=== PATIENT | male | born 1935 | race Caucasian/White ===

== ENCOUNTER 2016-03-22 07:37 | Observation (INO) | payer MEDICARE ==
[2016-03-22] MEDS ORDERED: Pantoprazole IV* 40 MG IV ONE (07:55)
[2016-03-22] MEDS ORDERED: Pantoprazole IV* 80 MG in NS 0.9% 250 ML* 250 ML IVPB SCH (08:00)
[2016-03-22 08:38] LABS: Hematocrit 48 % (42-52); Hemoglobin 16.2 g/dl (14.0-18.0); Mean Corpuscular HGB Conc 34 g/dl (31-36); Mean Corpuscular Hemoglobin 30 pg (27-31); Mean Corpuscular Volume 88 fL (80-94); Mean Platelet Volume 11 um3 (7.4-10.4); Red Blood Count 5.48 10^6/ul (4.0-5.4); Red Cell Distribution Width 14 % (10.5-15); White Blood Count 11.6 10^3/ul (3.5-10.8)
[2016-03-22 08:41] LABS: Comments Flag Yes
[2016-03-22 08:42] LABS: Add Diff/Slide Review? Slide Review Added
[2016-03-22 08:56] LABS: Albumin 3.8 g/dL (3.2-5.2); BUN/Creatinine Ratio 18.4 (8-20); Calcium 9.1 mg/dL (8.6-10.3); EGFR African American 89.4 (>60); EGFR Non-African American 69.5 (>60); Globulin 2.8 g/dL (2-4); Potassium 4.4 mmol/L (3.5-5.0); Total Bilirubin 1.2 mg/dL (0.2-1.0); Total Protein 6.6 g/dL (6.4-8.9)
[2016-03-22] MEDS ORDERED: Iohexol 300* (CONTRAST) 10 ML SDV IV ONE (09:31)
--- NOTE | 2016-03-22 11:16 | RAD ---
INDICATION: Bloody diarrhea, abdominal pain. COMPARISON: Comparison is made with a prior CT angiogram of the chest and abdomen from June 20, 2006. TECHNIQUE: A CT scan of the abdomen and pelvis was performed with intravenous and oral contrast following intravenous injection of 120 ml of Omnipaque 300 nonionic contrast. Contiguous axial sections were obtained from the lung bases through the symphysis pubis. Images were reconstructed in the coronal and sagittal planes. FINDINGS: The lung bases appear clear without pleural effusion. The liver and spleen are normal in size. There is a small fluid density lesion present in the posterior aspect of the left hepatic lobe measuring 1.5 cm in size which is unchanged significantly from the prior exam most consistent with a cyst. No calcified gallstones are seen. The pancreas appears to be within normal limits. The kidneys and adrenal glands are normal in size. No hydronephrosis is seen. There is a 2.5 cm cyst present in the midportion of the left kidney. The abdominal aorta is mildly ectatic and slightly tortuous. No aneurysm is present. There is moderate calcific plaque present. The infrarenal portion of the inferior vena cava is located on the left side and drains into the left renal vein. No significant enlarged retroperitoneal lymph nodes are seen. The stomach, small and large bowel appear nondistended. There is a moderate size hiatal hernia present. There is moderate grade circumferential thickening of the wall of the descending colon and proximal sigmoid colon with stranding in the adjacent fat most consistent with colitis. There is a trace amount of free intraperitoneal fluid in the left paracolic gutter. No free intraperitoneal air is seen. There is a moderate diverticulosis present in the sigmoid colon without evidence for diverticulitis. There are mild to moderate chronic compression fractures of the T12 and L1 vertebral bodies. No other focal osseous normality is seen. The patient is status post total right hip replacement surgery. IMPRESSION: 1. THICKENING OF THE WALL OF THE DESCENDING AND PROXIMAL SIGMOID COLON MOST CONSISTENT WITH COLITIS. 2. MODERATE SIZE HIATAL HERNIA. 3. CHRONIC COMPRESSION FRACTURES OF THE T12 AND L1 VERTEBRAL BODIES.
[2016-03-22] MEDS ORDERED: Ciprofloxacin 400MG IVPREMIX(* 400 MG/200 ML BAG IVPB ONE (11:54)
[2016-03-22] MEDS ORDERED: metroNIDAZOLE IV 250 MG/50ML* 50 ML IVPB ONE (11:54)
[2016-03-22] MEDS ORDERED: Acetaminophen TAB* 325 MG PO PRN (12:27)
[2016-03-22] MEDS ORDERED: Ondansetron INJ* 2 MG/ML VIAL IV PRN (12:27)
[2016-03-22 13:38] LABS: Urine Bacteria Absent (Absent); Urine Bilirubin Negative (Negative); Urine Glucose Negative (Negative); Urine Nitrite Negative (Negative)
--- NOTE | 2016-03-22 16:08 | HP ---
AMENDED REPORT NOW INCLUDES DATE OF ADMISSION ADMISSION HISTORY AND PHYSICAL: DATE OF ADMISSION: 03/22/16 PRIMARY CARE PROVIDER: Dr. Gamino. AMMUNITION ASSEMBLY II LABORER: Dr. Rowe. HEALTHCARE PROXY: Bill Marques, his son-in-law. CODE STATUS: DNR, discussed with the patient, will reflect it in [facility] filled out today. CHIEF COMPLAINT: Bright red blood per rectum. HISTORY OF PRESENT ILLNESS: This is an 81-year-old man, past medical history of atrial fibrillation, on Coumadin, who noticed yesterday at 8'o clock in the morning, crampy lower abdominal pain. He had a bowel movement at that time and he noted bright red blood. Throughout the day, he had four additional stools mixed with blood. He went to bed and overnight had no bowel movements; however , woke up this morning, had another bowel movement that was predominantly blood and less stool and was encouraged by his son-in-law to proceed to the emergency room. He notes that the abdominal pain comes and goes, feels crampy, and lasts for less than 1 minute. He describes it as the feeling one has "stomach gets upset" and improves with movement of stool and blood. He has had no associated nausea or vomiting, was able to tolerate food yesterday, although had decreased intake. There is no change in the character or quantity of abdominal pain with intake of food. He notes no lightheadedness, chest pain, shortness of breath, or palpitations. In emergency room, he had another bowel movement, which was noted to be bloody and none since then. He notes no sick contacts, no recent travel, but does note approximately 2 to 3 weeks ago, he had upper respiratory tract symptoms associated with laryngitis that has since improved. His last colonoscopy was in June by Dr. Pettit noted five small colonic polyps, one SSA and four TAs. Followup colonoscopy was pending. PCP recommendation based on his age. PAST MEDICAL HISTORY: 1. Chronic atrial fibrillation, on Coumadin, did not take yesterday evening's dose because of bleeding. 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 2. History of hypertension. 3. Permanent pacemaker. 4. History of rheumatic fever. 5. Hyperlipidemia. 6. Thoracic aneurysm. 7. Obstructive sleep apnea, on home CPAP. 8. Right hip replacement. MEDICATIONS: Reviewed with the patient: 1. Toprol 25 mg twice daily. 2. Digoxin 500 mcg daily. 3. Coumadin 5 mg Sunday, Sunday, Sunday, and Sunday and 2.5 mg Sunday, Sunday, and . ALLERGIES: No known drug allergies. FAMILY HISTORY: Reviewed and noncontributory to this admission. 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 No history of alcohol, tobacco, or illicit's. Lives alone. Ambulates unassisted. REVIEW OF SYSTEMS: As per HPI. Otherwise, all other systems negative. PHYSICAL EXAMINATION GENERAL: Lying flat in bed, interactive, pleasant, in no apparent distress, younger than stated age. VITAL SIGNS: When seen by this author, 116/81, heart rate 85, respiratory rate 14, 96% on room air, T-max in the emergency room 97.9. HEENT: Oropharynx is clear. Has moist mucous membranes. Sclerae are anicteric. No conjunctival pallor. NECK: Nonelevated JVD. No cervical or supraclavicular lymphadenopathy. CV: Heart rate is irregularly irregular. No murmurs, rubs, or gallops. LUNGS: Clear to auscultation. ABDOMEN: Soft, nondistended. Positive bowel sounds. Minimal tenderness in the left lower quadrant. No rebound or guarding. EXTREMITIES: Warm and well-perfused. He has very trace lower extremity edema. Less than 2-second cap refill. Good skin turgor. NEURO: He is alert and oriented x3. Cranial nerves are II through XII are intact. PSYCH: No appreciable anxiety, agitation, or depression. DIAGNOSTIC STUDIES/LAB DATA: Data reviewed: CT abdomen and pelvis notable for thickening of the wall of descending and proximal sigmoid colon, most consistent with colitis. Moderate-sized hiatal hernia. Chronic compression fractures of T12 and L1 vertebral bodies. EKG looks like high-grade AV block with adequate ventricular capture. T-wave inversions in II and aVF. T-wave inversions in V4 through V6. Notable labs: BUN 19, creatinine 1.03. AST 25, ALT 24, total bilirubin 1.2. INR is 1.6. White blood cell count 11.6, which is 77% neutrophils; hemoglobin 16.2; hematocrit 48; platelets are 125, which is his baseline. ASSESSMENT AND PLAN: This is an 81-year-old man with past medical history of chronic atrial fibrillation, on Coumadin, presenting with crampy abdominal pain associated with bright red blood per rectum. 1. Lower gastrointestinal bleed: Potentially viral gastroenteritis with lower gastrointestinal bleed in the setting of Coumadin use. Intermittent crampiness and recent upper respiratory tract infection, which supports this diagnosis. He does not appear to have lost significant amount of blood. His hemoglobin is 16.2 on presentation after 24 hours of bleeding. His hemoglobin is consistent with past hemoglobins. This does not seem to indicate hemoconcentration. We will trend hemoglobin and hematocrit every 6 hours. Ask GI for assistance. Place the patient on clear liquid diet. Stop Protonix drip and check orthostatics. 2. Atrial fibrillation: Holding Coumadin in the setting of active gastrointestinal bleed. Continue metoprolol and digoxin. 3. Obstructive sleep apnea. Continue with CPAP, hospital equipment. 4. DVT prophylaxis. SCDs. 5. Code status. DNR. Discussed with the patient. CC: Dr. Gamino; Dr. Rowe* [id number]/CPS #: [id number] [facility]
[2016-03-22 16:19] LABS: Hematocrit 46 % (42-52); Hemoglobin 15.6 g/dl (14.0-18.0)
[2016-03-22] MEDS ORDERED: Digoxin TAB* 0.25 MG PO SCH (17:00)
[2016-03-22] MEDS: Metoprolol Succinate XL TAB* 25 MG PO SCH (20:04)
[2016-03-22 20:22] LABS: Hematocrit 45 % (42-52); Hemoglobin 14.7 g/dl (14.0-18.0)
[2016-03-23 05:16] LABS: Hematocrit 46 % (42-52); Hemoglobin 15.5 g/dl (14.0-18.0); Mean Corpuscular HGB Conc 34 g/dl (31-36); Mean Corpuscular Hemoglobin 30 pg (27-31); Mean Corpuscular Volume 89 fL (80-94); Mean Platelet Volume 11 um3 (7.4-10.4); Red Blood Count 5.16 10^6/ul (4.0-5.4); Red Cell Distribution Width 14 % (10.5-15); White Blood Count 11.5 10^3/ul (3.5-10.8)
[2016-03-23 05:24] LABS: BUN/Creatinine Ratio 15.2 (8-20); Calcium 8.8 mg/dL (8.6-10.3); EGFR African American 87.4 (>60); Potassium 4.6 mmol/L (3.5-5.0)
[2016-03-23 07:12] VITALS: BP 111/80
[2016-03-23] MEDS: Metoprolol Succinate XL TAB* 25 MG PO SCH (07:46)
--- NOTE | 2016-03-23 15:57 | CONS ---
CONSULTATION REPORT: DATE OF CONSULT: 03/23/16 REASON FOR CONSULT: Abdominal pain, rectal bleeding, colitis on CT scan. NARRATIVE: Mr. Pascal is an 81-year-old gentleman with a history of atrial fibrillation, on Coumadin, who presents with crampy abdominal pain followed by rectal bleeding. He states that he has been doing well lately, but on the day prior to admission started to have mild lower abdominal pain. That followed episodes of hematochezia, where stools were noted to be bright red blood. He presented to the emergency room and had a few more episodes of hematochezia. He has no prior history of rectal bleeding. His evaluation in the emergency room demonstrated an unremarkable abdomen, blood work which demonstrated a hemoglobin of 16.2. A CT scan of the abdomen was performed, which I did review demonstrating some thickening of descending and proximal sigmoid colon consistent with segmental colitis. The patient was admitted overnight. He has been on a clear liquid diet and has had two nonbloody bowel movements so far today. He denies any recent travel or exposure to antibiotics. Of note, the patient did undergo colonoscopy in June of 2015 for screening purposes where few small polyps were removed, no other abnormality was detected. PAST MEDICAL HISTORY: Does include chronic atrial fibrillation, on Coumadin; hypertension; pacemaker placement; obstructive sleep apnea; right hip replacement. MEDICATIONS: Outpatient medicines were: 1. Toprol 25 mg twice a day. 2. Digoxin 500 mcg daily. 3. Coumadin. FAMILY HISTORY: Unremarkable. REVIEW OF SYSTEMS: He denies any melena, nausea, vomiting, unexplained weight loss, fevers, or chills. PHYSICAL EXAM: He is an elderly gentleman looking very comfortable, lying in bed, and in no acute distress. Temperature is 97.5, blood pressure is 111/80, heart rate is 79 and irregular. He does not appear pale. His lungs are clear. His cardiac exam reveals an irregular rhythm, but no apparent murmur. His abdomen is soft without tenderness, distention, or mass. Bowel sounds are hypoactive, but present. On rectal exam, there is no perianal lesion. There is no palpable lesion and stool is brown, but trace Hemoccult positive. LABORATORY DATA: Included a white count of 11.5, hemoglobin of 15.5. INR initially 1.63. BUN 16, creatinine 1.05. IMPRESSION: Elderly gentleman with history of atrial fibrillation presenting with pain followed by hematochezia and segmental colitis on CT scan. His presentation is highly suggestive of ischemic colitis. Both the distribution of inflammatory change and his presentation would speak for that condition. It seems to be quite mild given the absence of leukocytosis, fever, and there is rapid improvement, and I do not believe he needs endoscopic evaluation to prove this. He has a fairly recent colonoscopy. I would recommend advancing his diet to low residue and if he tolerates that he could likely be discharged. Coumadin can likely be continued. CC: Dr. Marta Cowan* [id number]/[facility] #: [id number] [facility]
--- NOTE | 2016-03-23 21:29 | DS ---
DISCHARGE SUMMARY: DATE OF ADMISSION: 03/22/16 DATE OF DISCHARGE: 03/23/16 PRIMARY CARE PROVIDER: Dr. Gamino. PRIMARY DIAGNOSIS: GI bleed, suspected ischemic colitis. SECONDARY DIAGNOSES: 1. Chronic atrial fibrillation, on Coumadin. 2. History of hypertension. 3. Permanent pacemaker. 4. Hyperlipidemia. 5. Thoracic aneurysm. 6. Obstructive sleep apnea, on CPAP. MEDICATIONS ON DISCHARGE: Unchanged from admission, include: 1. Coumadin 5 mg Sunday, Sunday, Sunday, and Sunday. 2. Coumadin 2.5 mg Sunday, Sunday, . 3. Metoprolol succinate 25 mg twice daily. 4. Digoxin 500 mg in the evening. IMAGING PERFORMED DURING HOSPITAL STAY: CT abdomen and pelvis, impression: Thickening of the wall descending and proximal sigmoid colon most consistent with colitis, moderate sized hiatal hernia, chronic compression fracture of T12 and L1 vertebral body. CONSULTATIONS OBTAINED DURING THE HOSPITAL STAY: Gastroenterology. BLOOD TESTS TO BE FOLLOWED ON DISCHARGE: CBC and INR. The patient instructed to have performed on 03/27/15, with results copy to Dr. Gamino. PERTINENT LABORATORY DATA: Hematocrit on presentation 48, nadired at 45, increased to 46 on discharge, not consistent with continued bleeding. HISTORY OF PRESENT ILLNESS AND HOSPITAL COURSE: This is a very pleasant 81-year - old gentleman felt crampy abdominal pain the day prior to presentation associated with bright red blood per rectum mixed in with loose stools. This continued for 24 hours and therefore he sought attention in the emergency room where a CAT scan was performed consistent with colitis as indicated above. He was treated conservatively now with antibiotics, simply monitoring and with holding his Coumadin with resolution of both the abdominal pain as well as the bright red blood per rectum. Serial hemoglobin monitor did not indicate significant blood loss. His INR on discharge 1.45. He will be restarted on his home dosing without loading in the setting of recent GI bleeding. He was seen in conjunction with Dr. Coyle of Gastroenterology who thought location of colitis on CAT scan in conjunction with patient's symptoms was fairly typical of ischemic colitis. The patient tolerated hospital stay well without complications, tolerating diet upon discharge, ambulating around the unit. At followup, please; 1. Follow CBC as well as INR as indicated above. 2. No other specific labs or vitals that need followup. Reasons to return to the hospital including, but not limited to worsening of symptoms, bright red blood per rectum, chest pain, shortness of breath, nausea, vomiting, lightheadedness, loss of consciousness, near loss of consciousness, inability to obtain or tolerate medication were discussed with the patient, he acknowledged understanding. TIME SPENT: Greater than 45 minutes spent discharging this patient, greater than half was spent [id number] with the patient. CC: Dr. Gamino* [id number]/CPS #: [id number] [facility]
--- NOTE | 2016-04-05 23:48 | ED ---
Ana Lilia Christine Matthew, scribed for Timi Bernabe MD on 03/22/16 at 0802 . Abdominal Pain/Male - HPI Summary HPI Summary: An 81 y/o male presents to the ED with intermittent diffuse lower abdominal pain since yesterday at 08:00. The pain is rated 5/10 in severity. Associated symptoms include blood w/ stool - bright red, and diarrhea. The patient denies pain with BM, fever, diaphoresis, chills, chest pain, dizziness, lightheadedness , fatigue, decreased appetite. The patient is on Coumadin, but did not taken his Coumadin last night. No Hx of colon CA, and diverticulitis. Hx of colon polyps. No Hx of GI bleeds in the past. - History of Current Complaint Chief Complaint: EDGIBleed Stated Complaint: LOWER ABD PAIN Time Seen by Provider: 03/22/16 07:53 Hx Obtained From: Patient Onset/Duration: Sudden Onset, Lasting Days - since yesterday at 08:00, Still Present Timing: Intermittent Severity Initially: Moderate Severity Currently: Moderate Pain Intensity: 5 Pain Scale Used: 0-10 Numeric Location: Diffuse - lower abdominal pain Radiates: No Aggravating Factor(s): Nothing Alleviating Factor(s): Nothing Associated Signs And Symptoms: Positive: Blood in Stool. Negative: Diaphoresis , Fever, Chest Pain, Dizzy, Decreased Appetite - Allergies/Home Medications Allergies/Adverse Reactions: Allergies Allergy/AdvReac Type Severity Reaction Status Date / Time No Known Allergies Allergy Verified 03/22/16 07:40 Home Medications: Home Medications Warfarin TAB(*) [Coumadin TAB(*)] 2.5 mg PO [place] 03/22/16 [History Confirmed 03/22/16] PMH/Surg Hx/FS Hx/Imm Hx Cardiovascular History: Reports: Hx Hypercholesterolemia, Hx Hypertension, Hx Pacemaker/ICD - approx 2008 [place], Other Cardiovascular Problems/Disorders - afib Respiratory History: Reports: Hx Sleep Apnea - new BiPAP user, compliant Musculoskeletal History: Reports: Hx Arthritis - osteo Sensory History: Reports: Hx Cataracts - BILATERAL, Hx Contacts or Glasses Denies: Hx Hearing Aid Opthamlomology History: Reports: Hx Cataracts - BILATERAL, Hx Contacts or Glasses - Surgical History Surgery Procedure, Year, and Place: two years ago rt hip replacement at [place] ; pacemaker [address] [facility]; Hx Anesthesia Reactions: No Infectious Disease History: No Infectious Disease History: Denies: Traveled Outside the [place] in Last 30 Days - Family History Family History: No FHx of malignant hyperthermia. No FHx of anesthesia reaction - Social History Alcohol Use: None Substance Use Type: Reports: None Smoking Status (MU): Former Smoker Type: Cigarettes Amount Used/How Often: OFF AND ON X 2 YEARS Length of Time of Smoking/Using Tobacco: 4 years Have You Smoked in the Last Year: No Review of Systems Constitutional: Negative Negative: Fever, Chills, Fatigue, Skin Diaphoresis Eyes: Negative Negative: Erythema ENT: Negative Negative: Sore Throat Cardiovascular: Negative Negative: Chest Pain Respiratory: Negative Negative: Shortness Of Breath, Cough Positive: Abdominal Pain - Diffuse lower abdominal pain , Diarrhea. Negative: Vomiting, Nausea Genitourinary: Negative Negative: dysuria, hematuria Musculoskeletal: Negative Negative: Myalgia, Edema - peda Skin: Negative Negative: Rash Neurological: Negative Psychological: Normal All Other Systems Reviewed And Are Negative: Yes Physical Exam - Summary Physical Exam Summary: Rectal Exam: Jeb Blood; No obvious hemorrhoids. Triage Information Reviewed: Yes Vital Signs On Initial Exam: Initial Vitals Temp Pulse Resp BP Pulse Ox 97.9 F 86 15 111/75 99 03/22/16 07:40 03/22/16 07:40 03/22/16 07:40 03/22/16 07:40 03/22/16 07:40 Vital Signs Reviewed: Yes Appearance: Positive: Well-Appearing, Well-Nourished Skin: Positive: Warm, Dry Head/Face: Positive: Other - Normocephalic; Atraumatic Eyes: Positive: Conjunctiva Clear Dental: Negative: Cervical Lymphadenopathy Neck: Positive: No Lymphadenopathy, Other: - Musculoskeletal ROM normal neck; No JVD Respiratory/Lung Sounds: Positive: Breath Sounds Present, Other - Effort normal. Negative: Rales, Stridor, Tracheal Deviation, Wheezes Cardiovascular: Positive: RRR, Other - Heart sounds normal; Intact distal pulses ; The pedal pulses are 2+ and symmetric. Radial pulses are 2+ and symmetric.. Negative: Murmur Abdomen Description: Positive: Nontender, Soft, Other: - No Rebound. Negative: Distended, Guarding Musculoskeletal: Negative: Edema Left, Edema Right Neurological: Positive: Alert, Oriented to Person Place, Time Psychiatric: Positive: Affect/Mood Appropriate Diagnostics - Vital Signs Vital Signs Temp Pulse Resp BP Pulse Ox 03/22/16 07:40 97.9 F 86 15 111/75 99 - Laboratory Lab Results: Lab Results 03/22/16 03/22/16 03/22/16 Range/Units 08:14 08:14 08:14 WBC 11.6 H (3.5-10.8) 10^3/ul RBC 5.48 H (4.0-5.4) 10^6/ul Hgb 16.2 (14.0-18.0) g/dl Hct 48 (42-52) % MCV 88 (80-94) fL MCH 30 (27-31) pg MCHC 34 (31-36) g/dl RDW 14 (10.5-15) % Plt Count 125 L (150-450) 10^3/ul MPV 11 H (7.4-10.4) um3 Neut % (Auto) 77.1 (38-83) % Lymph % (Auto) 13.5 L (25-47) % Lander % (Auto) 7.8 (1-9) % Eos % (Auto) 0.8 (0-6) % Baso % (Auto) 0.8 (0-2) % Absolute Neuts (auto) 9.0 H (1.5-7.7) 10^3/ul Absolute Lymphs (auto) 1.6 (1.0-4.8) 10^3/ul Absolute Monos (auto) 0.9 H (0-0.8) 10^3/ul Absolute Eos (auto) 0.1 (0-0.6) 10^3/ul Absolute Basos (auto) 0.1 (0-0.2) 10^3/ul Absolute Nucleated RBC 0.07 10^3/ul Nucleated RBC % 0.6 INR (Anticoag Therapy) 1.63 H (0.89-1.11) APTT 32.9 (26.0-36.3) seconds Sodium 137 (133-145) mmol/L Potassium 4.4 (3.5-5.0) mmol/L Chloride 103 (101-111) mmol/L Carbon Dioxide 28 (22-32) mmol/L Anion Gap 6 (2-11) mmol/L BUN 19 (6-24) mg/dL Creatinine 1.03 (0.67-1.17) mg/dL Est GFR ( Amer) 89.4 (>60) Est GFR (Non-Af Amer) 69.5 (>60) BUN/Creatinine Ratio 18.4 (8-20) Glucose 96 (70-100) mg/dL Calcium 9.1 (8.6-10.3) mg/dL Total Bilirubin 1.20 H (0.2-1.0) mg/dL AST 25 (13-39) U/L ALT 24 (7-52) U/L Alkaline Phosphatase 62 (34-104) U/L Total Protein 6.6 (6.4-8.9) g/dL Albumin 3.8 (3.2-5.2) g/dL Globulin 2.8 (2-4) g/dL Albumin/Globulin Ratio 1.4 (1-3) Urine Color Urine Appearance Urine pH (5-9) Ur Specific [place] (1.010-1.030) Urine Protein (Negative) Urine Ketones (Negative) Urine Blood (Negative) Urine Nitrate (Negative) Urine Bilirubin (Negative) Urine Urobilinogen (Negative) Ur Leukocyte Esterase (Negative) Urine WBC (Auto) (Absent) Urine RBC (Auto) (Absent) Ur Squamous Epith Cells (Absent) Urine Bacteria (Absent) Urine Glucose (Negative) Blood Type Antibody Screen 03/22/16 03/22/16 Range/Units 08:14 10:25 WBC (3.5-10.8) 10^3/ul RBC (4.0-5.4) 10^6/ul Hgb (14.0-18.0) g/dl Hct (42-52) % MCV (80-94) fL MCH (27-31) pg MCHC (31-36) g/dl RDW (10.5-15) % Plt Count (150-450) 10^3/ul MPV (7.4-10.4) um3 Neut % (Auto) (38-83) % Lymph % (Auto) (25-47) % Lander % (Auto) (1-9) % Eos % (Auto) (0-6) % Baso % (Auto) (0-2) % Absolute Neuts (auto) (1.5-7.7) 10^3/ul Absolute Lymphs (auto) (1.0-4.8) 10^3/ul Absolute Monos (auto) (0-0.8) 10^3/ul Absolute Eos (auto) (0-0.6) 10^3/ul Absolute Basos (auto) (0-0.2) 10^3/ul Absolute Nucleated RBC 10^3/ul Nucleated RBC % INR (Anticoag Therapy) (0.89-1.11) APTT (26.0-36.3) seconds Sodium (133-145) mmol/L Potassium (3.5-5.0) mmol/L Chloride (101-111) mmol/L Carbon Dioxide (22-32) mmol/L Anion Gap (2-11) mmol/L BUN (6-24) mg/dL Creatinine (0.67-1.17) mg/dL Est GFR ( Amer) (>60) Est GFR (Non-Af Amer) (>60) BUN/Creatinine Ratio (8-20) Glucose (70-100) mg/dL Calcium (8.6-10.3) mg/dL Total Bilirubin (0.2-1.0) mg/dL AST (13-39) U/L ALT (7-52) U/L Alkaline Phosphatase (34-104) U/L Total Protein (6.4-8.9) g/dL Albumin (3.2-5.2) g/dL Globulin (2-4) g/dL Albumin/Globulin Ratio (1-3) Urine Color Yellow Urine Appearance Clear Urine pH 6.0 (5-9) Ur Specific [place] 1.011 (1.010-1.030) Urine Protein Negative (Negative) Urine Ketones Negative (Negative) Urine Blood 1+ H (Negative) Urine Nitrate Negative (Negative) Urine Bilirubin Negative (Negative) Urine Urobilinogen Negative (Negative) Ur Leukocyte Esterase Negative (Negative) Urine WBC (Auto) Absent (Absent) Urine RBC (Auto) Trace(0-2/hpf) (Absent) Ur Squamous Epith Cells Present H (Absent) Urine Bacteria Absent (Absent) Urine Glucose Negative (Negative) Blood Type O Negative Antibody Screen Negative Result Diagrams: 03/23/16 04:35 03/23/16 04:35 Lab Statement: Any lab studies that have been ordered have been reviewed, and results considered in the medical decision making process. - CT A/P W CT CT Interpretation: Positive (See Comments) - IMPRESSION: 1. THICKENING OF THE WALL OF THE DESCENDING AND PROXIMAL SIGMOID COLON MOST CONSISTENT WITH COLITIS. 2. MODERATE SIZE HIATAL HERNIA. 3. CHRONIC COMPRESSION FRACTURES OF THE T12 AND L1 VERTEBRAL BODIES. CT Interpretation Completed By: Radiologist - EKG 08:31 Cardiac Rate: NL - 80 bpm EKG Rhythm: Atrial Fibrillation EKG Interpretation: LVH, ST depression in leads V4-V6; No STEMI Abdominal Pain Fem Course/Dx - Course Assessment/Plan: An 81 y/o male presents to the ED with rectal bleeding since 24 hours ago. Associated symptoms include blood w/ stool - bright red, and diarrhea. The patient denies pain with BM, fever, diaphoresis, chills, chest pain, dizziness, lightheadedness, fatigue, decreased appetite. The patient is on Coumadin, but did not taken his Coumadin last night. A/P CT showed thickening of the wall of the descending and proximal sigmoid colon most consistent with colitis. EKG showed Afib at 80 bpm with LVH and ST depressions in leads V4-V6. I discussed the patient with Dr. Calero who will admit the patient into his services. - Diagnoses Provider Diagnoses: GI bleed - Provider Notifications Discussed Care Of Patient With: Dr. Calero (Hospitalist) at 11:30 -- Notified of patient's history and will admit the patient into his services. Discharge - Discharge Plan Condition: Stable Disposition: ADMITTED TO [facility] documentation as recorded by the Ana Lilia sawant Matthew accurately reflects the service I personally performed and the decisions made by me, Timi Bernabe MD.
== END 2016-03-23 16:10 | disposition home or self-care (01) ==
LOC: ED 07:37 → INTOOBSV 12:28 → MED 12:28
PROVIDERS: ADMIT Internal Medicine; ATTEND Internal Medicine
DX: K92.2 Gastrointestinal hemorrhage, unspecified (principal); I48.2 Chronic atrial fibrillation; Z79.01 Long term (current) use of anticoagulants; I10 Essential (primary) hypertension; Z95.0 Presence of cardiac pacemaker; E78.5 Hyperlipidemia, unspecified; I71.2 Thoracic aortic aneurysm, without rupture; G47.33 Obstructive sleep apnea (adult) (pediatric); K44.9 Diaphragmatic hernia without obstruction or gangrene; I45.10 Unspecified right bundle-branch block; Z79.899 Other long term (current) drug therapy
CPT/HCPCS: 36415; 74177; 80048; 80053; 81003; 81015; 82272; 85014; 85018; 85025; 85610; 85730; 86850; 86900; 86901; 93005; 96374; 99285; A9270-GY; G0378; Q9967

== ENCOUNTER 2017-01-17 07:30 | Day surgery (SDC) | payer MEDICARE ==
[~2017-01-17 07:30] MED LIST: Acetaminophen TAB* 325 MG PO PRN; Buffered Lidocaine 0.9% SYRIN* 5 ML/SYR SYRINGE INTRADERM ONE
[2017-01-17] MEDS ORDERED: Midazolam* 1 MG/ML 5 ML VIAL (5 MG) ONE (09:13)
[2017-01-17 10:11] VITALS: BP 102/62
[2017-01-17] MEDS ORDERED: Neomycin/Polymy/Dex OPTH.SUSP* MAXITROL 0.1% 5 ML ONE (14:12)
[2017-01-17] MEDS ORDERED: Cyclopentolate 1% OPTH.SOL* 2 ML BTL ONE (14:12)
[2017-01-17] MEDS ORDERED: Povidone Iodine 5% OPTH* 30 ML BTL ONE (14:12)
[2017-01-17] MEDS ORDERED: Ketorolac 0.5% OPHTH (NF) 0.5 % 5 ML BTL ONE (14:12)
[2017-01-17] MEDS ORDERED: acetaZOLAMIDE TAB* 250 MG ONE (14:12)
[2017-01-17] MEDS ORDERED: Proparacaine 0.5% OPHTH.SOL* 15 ML BTL ONE (14:12)
[2017-01-17] MEDS ORDERED: Buffered Lidocaine 0.9% SYRIN* 5 ML/SYR SYRINGE ONE (14:12)
[2017-01-17] MEDS ORDERED: Lidocaine 2% EPI 1:200000 MPF* 20 ML VIAL ONE (14:12)
[2017-01-17] MEDS ORDERED: Phenylephrine 2.5% OPTH.SOL* 2 ML BTL ONE (14:12)
[2017-01-17] MEDS ORDERED: Lidocaine 1% MPF* 2 ML VIAL ONE (14:12)
--- NOTE | 2017-01-18 01:56 | OP ---
DATE OF OPERATION: 01/17/17 [facility] DATE OF : 37 SURGEON: Pavel Carlos M.D. PREOPERATIVE DIAGNOSIS: Cataract left eye. POSTOPERATIVE DIAGNOSIS: Cataract left eye. OPERATIVE PROCEDURE: Phacoemulsification left eye with IOL. DESCRIPTION OF PROCEDURE: The patient was brought to the operating room after being given 1/2% Alcaine with epinephrine drops in the preoperative area. The eye was prepped and draped in the usual sterile fashion. Sterile drape and eyelid speculum were placed. Again, topical 1/2% Alcaine with epinephrine was given. A paracentesis incision was made at the 3 o'clock position with the No.75 blade. Clear cornea incision 2.2 x 2.2-mm was created at the 6 o'clock position starting at the anterior limbus using the 2.2-mm keratome. The anterior chamber was irrigated with 0.4 mL of 1% non-preservative intracameral lidocaine and filled with DisCoVisc. A capsulorrhexis was completed using the cystotome and the Utrata forceps. Hydrodissection was performed with balanced salt solution. The lens nucleus was removed with the Phacoemulsification handpiece without incident. Cortex was removed with the irrigation-aspiration handpiece. The capsular bag was re-inflated using DisCoVisc and an [id number] implant was inserted with the shooter. The irrigation-aspiration handpiece was used to remove all residual DisCoVisc. The eye was refilled with balanced salt solution and the wound checked and found to be watertight. Topical Maxitrol drops were given. [id number] #: [id number] [facility]ERKev[facility]
== END 2017-01-17 10:20 | disposition home or self-care (01) ==
LOC: OREAST 07:30
PROVIDERS: ATTEND Specialist
DX: H25.812 Combined forms of age-related cataract, left eye (principal); H16.223 Keratoconjunctivitis sicca, not specified as Sjogren's, bilateral; I48.91 Unspecified atrial fibrillation; Z79.01 Long term (current) use of anticoagulants; Z95.0 Presence of cardiac pacemaker; I10 Essential (primary) hypertension; E78.5 Hyperlipidemia, unspecified
CPT/HCPCS: A9270-GY; J2250; V2632